=== PATIENT | male | born 1995 | race Two or more races ===

== ENCOUNTER 2020-04-18 01:32 | Emergency (ER) | payer MEDICAID ==
[~2020-04-18] VITALS: Ht 180.3 cm; Wt 68.2 kg
[~2020-04-18 01:32] MED LIST: NOCURR
[2020-04-18] MEDS ORDERED: PERTUSS(ACELL),DIPH,TET VAC/PF 0.5 ML VIAL IM ONE (02:45)
[2020-04-18] MEDS ORDERED: LIDOCAINE 1%/EPI 1:200,000/PF 30 ML VIAL SQ ONE (03:15)
[2020-04-18 04:18] VITALS: BP 120/80
== END 2020-04-18 04:20 | disposition home or self-care (01) ==
LOC: EMS 01:34
DX: S01.81XA Laceration without foreign body of other part of head, initial encounter (principal); V00.131A Fall from skateboard, initial encounter; Y93.51 Activity, roller skating (inline) and skateboarding; Y92.89 Other specified places as the place of occurrence of the external cause; Y99.8 Other external cause status
CPT/HCPCS: 12013; 73110; 90471; 90715; 99283; J3490